=== PATIENT | female | born 1935 | race Caucasian/White ===

== ENCOUNTER → 2017-12-18 | Outpatient (CLI) | payer OTHER ==
[~2017-12-18] MED LIST: LIDOCAINE 1% 300 MG/30 ML SDV ONE
== END ==
LOC: FIMAGING 11:18
PROVIDERS: ATTEND Orthopaedic Surgery
PROC: 0K9P3ZZ Drainage of Left Hip Muscle, Percutaneous Approach (ICD-10-PCS; principal; 2017-12-18)
DX: M67.451 Ganglion, right hip (principal)